=== PATIENT | female | born 1985 | race Caucasian/White ===

== ENCOUNTER 2021-10-20 04:40 | Day surgery (SDC) | payer OTHER ==
[2021-10-15 17:27] VITALS: BMI 25.7
[2021-10-20] MEDS ORDERED: IBUPROFEN 400 MG TABLET (FP) PO PRN (11:34)
[2021-10-20] MEDS ORDERED: ONDANSETRON 4 MG/2 ML VIAL IVPUSH PRN (11:34)
[2021-10-20] MEDS ORDERED: ACETAMINOPHEN 325 MG TABLET (FP) PO PRN (11:34)
[2021-10-20] MEDS ORDERED: oxyCODONE HCL 5 MG TABLET PO PRN (11:34)
[2021-10-20] MEDS ORDERED: PROPOFOL 20 ML ONE (12:35)
[2021-10-20] MEDS ORDERED: MIDAZOLAM HCL 2 MG/2 ML SINGLE DOSE VIAL ONE (12:35)
[2021-10-20] MEDS ORDERED: LACTATED RINGERS SOLUTION 1,000 ML IV SCH (13:15)
[2021-10-20] MEDS ORDERED: oxyCODONE HCL 5 MG TABLET ONE (15:05)
[2021-10-20 16:18] VITALS: TEMP 97.2
[2021-10-20 16:26] VITALS: BP 115/65; PULSE 70
== END 2021-10-20 16:00 | disposition home or self-care (01) ==
LOC: JASU-SURG 04:40
PROVIDERS: ATTEND Obstetrics & Gynecology
PROC: 0UDB7ZX Extraction of Endometrium, Via Natural or Artificial Opening, Diagnostic (ICD-10-PCS; 2021-10-20)
PROC: 0UB98ZX Excision of Uterus, Via Natural or Artificial Opening Endoscopic, Diagnostic (ICD-10-PCS; principal; 2021-10-20 11:30)
DX: N92.0 Excessive and frequent menstruation with regular cycle (principal); N84.0 Polyp of corpus uteri
CPT/HCPCS: 81025; 86900; 88305-TC; 94760